=== PATIENT | male | born 1950 | race Caucasian/White ===

== ENCOUNTER 2019-12-10 20:16 | Emergency (ER) | payer MEDICARE ==
[~2019-12-10] VITALS: Ht 180.3 cm; Wt 90.3 kg
[2019-12-10 20:20] VITALS: BP 155/82
[2019-12-10] MEDS ORDERED: DIPH,PERTUSS(ACELL),TET VAC/PF 0.5 ML IM-VACC ONE ×2 (20:36→21:00)
[2019-12-10] MEDS ORDERED: LIDOCAINE-MPF 1%, 5ML ONE (21:15)
[2019-12-10] MEDS ORDERED: LIDOCAINE-MPF 1%, 5ML INFIL ONE (21:30)
--- NOTE | 2019-12-10 21:51 | NUR ---
REPORT RECEIVED FROM MERLYN CASTILLO RN.
[2019-12-10] MEDS ORDERED: NEOSPORIN OINT. PKT 1 PACKET ONE ×2 (22:18→22:28)
== END 2019-12-10 22:40 | disposition home or self-care (01) ==
LOC: ED 21:59
DX: S60.352A Superficial foreign body of left thumb, initial encounter (principal); W45.8XXA Other foreign body or object entering through skin, initial encounter; Y93.89 Activity, other specified; Y92.39 Other specified sports and athletic area as the place of occurrence of the external cause; Y99.8 Other external cause status
CPT/HCPCS: 10120; 90471; 90715; 99285